=== PATIENT | female | born 1995 | race Caucasian/White ===

== ENCOUNTER 2023-02-10 05:15 | Inpatient (IN) | payer OTHER ==
[~2023-02-10] VITALS: Ht 172.7 cm; Wt 101.1 kg
[2023-02-10] VITALS (12 sets, daily range): BP systolic 108–141; BP diastolic 61–89
[2023-02-10] MEDS ORDERED: LACTATED RINGER'S 1000 ML IV STA (06:35)
[2023-02-10] MEDS ORDERED: CARBOPROST TROMETHAMINE 250 MCG/ML AMP IM PRN (06:35)
[2023-02-10] MEDS ORDERED: METHYLERGONOVINE MALEATE 0.2MG/ML 1ML VIAL IM PRN (06:35)
[2023-02-10] MEDS ORDERED: LR 1,000 ML IV SCH (06:35)
[2023-02-10] MEDS ORDERED: TRANEXAMIC ACID INJection 1,000 MG in NS 100 ML IV PRN (06:35)
[2023-02-10] MEDS ORDERED: OXYTOCIN DRIP 30 UNITS in IV 1 EA IV PRN ×4 (06:35)
[2023-02-10] MEDS ORDERED: LIDOCAINE 1% MDV 20ML VIAL INFIL PRN (06:35)
[2023-02-10] MEDS ORDERED: OXYTOCIN INJ 10UNITS/ML 1ML VIAL IM PRN (06:35)
[2023-02-10 07:00] LABS: HEMATOCRIT 34.2 % (36.0-47.0); HEMOGLOBIN 11.6 g/dl (12.0-15.5); MEAN CORPUSCULAR HEMOGLOBIN 30.9 pg (27.0-33.0); MEAN CORPUSCULAR HGB CONC 33.9 g/dl (32.0-36.5); PLATELET COUNT, AUTOMATED 284 10^3/uL (150-450); RED BLOOD COUNT 3.76 10^6/uL (4.00-5.40); WHITE BLOOD COUNT 19.4 10^3/uL (4.0-10.0)
[2023-02-10] MEDS ORDERED: PRENTAB9 PO (10:24)
[2023-02-10] MEDS ORDERED: PROB250C PO (10:24)
[2023-02-10] MEDS ORDERED: CVS500CA5 PO (10:24)
[2023-02-10] MEDS ORDERED: HOME MED LIST COMPLETE! XX SCH (10:25)
[2023-02-10] MEDS ORDERED: DOCUSATE SODIUM 100MG CAPSULE PO PRN (19:00)
[2023-02-10] MEDS ORDERED: ANUSOL HC CREAM 30GM TOP PRN (19:00)
[2023-02-10] MEDS ORDERED: RHOGAM 300MCG (1500IU) INJ IM SCH (19:00)
[2023-02-10] MEDS ORDERED: DIBUCAINE 1% OINTMENT 30GM TOP PRN (19:00)
[2023-02-10] MEDS ORDERED: METHYLERGONOVINE MALEATE 0.2 MG TAB PO PRN (19:00)
[2023-02-10] MEDS ORDERED: ACETAMINOPHEN 500 MG TAB PO PRN (19:00)
[2023-02-11] MEDS: IBUPROFEN 600MG TAB PO PRN ×4 (02:19→23:17)
[2023-02-11 06:00] VITALS: BP 114/67
[2023-02-11] MEDS: PRENATAL VITAMINS CHEWABLE TABLET PO SCH (09:19)
[2023-02-11 17:58] VITALS: BP 113/76
[2023-02-12 06:00] VITALS: BP 129/79
[2023-02-12] MEDS ORDERED: MEASLES,MUMPS,RUBELLA VACCINE INJ (MMR-II) SC.IMMUN ONE (09:00)
[2023-02-12] MEDS: PRENATAL VITAMINS CHEWABLE TABLET PO SCH (09:11)
[2023-02-12] MEDS: IBUPROFEN 600MG TAB PO PRN (09:16)
[2023-02-12] MEDS ORDERED: IBUP-1022 PO (09:30)
[2023-02-12] MEDS ORDERED: ACET-683 PO (09:30)
== END 2023-02-12 18:10 | disposition home or self-care (01) | DRG 807 ==
LOC: M LDO 05:15 → M LDI 06:35 → M OBS 02-11 01:19
PROVIDERS: ADMIT Obstetrics & Gynecology; ATTEND Advanced Practice Midwife
PROC: 10E0XZZ Delivery of Products of Conception, External Approach (ICD-10-PCS; principal; 2023-02-10)
PROC: 0HQ9XZZ Repair Perineum Skin, External Approach (ICD-10-PCS; 2023-02-10)
DX: O48.0 Post-term pregnancy (principal); Z37.0 Single live birth; Z3A.40 40 weeks gestation of pregnancy; Z88.2 Allergy status to sulfonamides; Z91.030 Bee allergy status; O69.81X0 Labor and delivery complicated by cord around neck, without compression, not applicable or unspecified; O70.0 First degree perineal laceration during delivery